=== PATIENT | female | born 1940 | race American Indian/Alaskan Native ===

== ENCOUNTER 2020-11-22 15:37 | Emergency (ER) | payer MEDICAID ==
[2020-11-22 16:02] VITALS: BP 148/81
[2020-11-22 16:52] LABS: BUN/Creatinine Ratio 17; Blood Urea Nitrogen 19 mg/dL (7-17); Calcium 9.6 mg/dL (8.4-10.2); Hemolysis Index 5
[2020-11-22 16:53] LABS: INR 1.05 (0.87-1.13)
[2020-11-22 16:54] LABS: Basophils # (Auto) 0.1 K/mm3 (0.0-0.1); Eosinophils # (Auto) 0.2 K/mm3 (0.0-0.4); Eosinophils % (Auto) 2.2 % (0.0-4.3); Hematocrit 43.9 % (30.3-42.9); Lymphocytes % (Auto) 26.7 % (13.4-35.0); Mean Corpuscular HGB Conc 34 % (30-34); Mean Corpuscular Volume 92 fl (79-97); Monocytes # (Auto) 0.8 K/mm3 (0.0-0.8); Monocytes % (Auto) 10.6 % (0.0-7.3); Partial Thromboplastin Time 41.1 Sec. (24.2-36.6); Platelet Count 186 K/mm3 (140-440); Red Blood Count 4.75 M/mm3 (3.65-5.03); Red Cell Distribution Width 13.1 % (13.2-15.2)
--- NOTE | 2020-11-22 17:31 | Cat Scan Report ---
NONENHANCED CT SCAN OF THE HEAD: INDICATION / CLINICAL INFORMATION: 80 years Female; neuro deficits <6hrs or sx present upon awakening. TECHNIQUE: Routine CT head without contrast. All CT scans at this location are performed using CT dos e reduction for ALARA by means of automated exposure control. COMPARISON: None. FINDINGS: BRAIN / INTRACRANIAL CONTENTS: No acute hemorrhage, mass effect, midline shift, hydrocephalus, or acu te, large territorial infarct. Subtle ischemic changes in the right corpus stratum; age indeterminate No significant white matter abnormality. CRANIOCERVICAL JUNCTION: No significant abnormality. ORBITS: No significant abnormality of visualized orbits. SINUSES / MASTOIDS: No significant abnormality of the visualized paranasal sinuses or mastoid air gaby ls. ADDITIONAL FINDINGS: None. IMPRESSION: No intracerebral hemorrhage or stroke mimics No acute territorial infarction; focal ischemic changes in the right corpus stratum; age indeterminat e Signer Name: Fermin Mark MD Signed: 11/22/2020 5:27 PM Workstation Name: [id number]
[2020-11-22] MEDS ORDERED: HYDROcodone/ACETAMINOPHEN 5-325 MG TAB PO ONE (18:44)
--- NOTE | 2020-11-22 18:55 | Emergency Department Report ---
HPI - General Chief Complaint: Neuro Symptoms/Deficit Time Seen by Provider: 11/22/20 18:31 - [facility] HPI: Room 7 The patient is an 80-year-old female present with a chief complaint of headache. Family states the patient has been complaining of intermittent migrating headache since yesterday. There is also noticed redness to the left eye. Has been no nausea vomiting, fever or preceding trauma. Patient denies paresthesia or weakness. Patient currently gets her headache a score of 8/10. ED Past Medical Hx - Past Medical History Hx Hypertension: Yes Hx CVA: Yes (TIA x2) Hx Diabetes: Yes - Surgical History Past Surgical History?: No - Family History Family history: no significant - Social History Smoking Status: Never Smoker Substance Use Type: None - Medications Home Medications: Home Medications Medication Instructions Recorded Confirmed Last Taken Type HYDROcodone/APAP 5-325 [[place] 1 each PO Q6HR PRN #10 tablet 11/22/20 Unknown Rx 5/325] ED Review of Systems ROS: Stated complaint: HEADACHE Other details as noted in HPI Constitutional: denies: fever Eyes: other (Subconjunctival hemorrhage OS) ENT: denies: ear pain Respiratory: no symptoms reported Cardiovascular: denies: chest pain Endocrine: no symptoms reported Gastrointestinal: denies: abdominal pain Genitourinary: denies: dysuria Musculoskeletal: denies: back pain Neurological: headache. denies: weakness, numbness, paresthesias Physical Exam - Physical Exam Vital Signs: Vital Signs 11/22/20 15:50 Temperature 98.7 F Pulse Rate 76 Respiratory 20 Rate Blood Pressure 148/81 O2 Sat by Pulse 96 Oximetry Physical Exam: GENERAL: The patient is well-developed well-nourished female lying on stretcher not appearing to be in acute distress. [] HEENT: Normocephalic. Atraumatic. Extraocular motions are intact. Patient has moist mucous membranes. Subconjunctival hemorrhage OS. No hyphema NECK: Supple. No meningitic signs are noted. There is no nuchal rigidity CHEST/LUNGS: Clear to auscultation. There is no respiratory distress noted. HEART/CARDIOVASCULAR: Regular. There is no tachycardia. There is no gallop rub or murmur. ABDOMEN: Abdomen is soft, nontender. Patient has normal bowel sounds. There is no abdominal distention. SKIN: There is no rash. There is no edema. There is no diaphoresis. NEURO: The patient is awake, alert, and oriented. The patient is cooperative. The patient has no focal neurologic deficits. The patient has normal speech and gait. Cranial nerves II through XII grossly intact, no drift. GCS 15. Negat linda Romberg MUSCULOSKELETAL: There is no evidence of acute injury. 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 Lymph # (Auto) 2.0 Dane # (Auto) 0.8 Eos # (Auto) 0.2 Baso # (Auto) 0.1 Seg Neutrophils % 59.8 Seg Neutrophils # 4.5 PT 14.2 INR 1.05 APTT 41.1 H Thrombin Time Sodium 144 Potassium 3.8 Chloride 102.3 Carbon Dioxide 31 H Anion Gap 15 BUN 19 H Creatinine 1.1 Estimated GFR 58 BUN/Creatinine Ratio 17 Glucose 90 Calcium 9.6 Troponin T < 0.010 11/22/20 16:14 WBC RBC Hgb Hct MCV MCH MCHC RDW Plt Count Lymph % (Auto) Dane % (Auto) Eos % (Auto) Baso % (Auto) Lymph # (Auto) Dane # (Auto) Eos # (Auto) Baso # (Auto) Seg Neutrophils % Seg Neutrophils # PT INR APTT Thrombin Time 16.0 Sodium Potassium Chloride Carbon Dioxide Anion Gap BUN Creatinine Estimated GFR BUN/Creatinine Ratio Glucose Calcium Troponin T - EKG Data -: EKG Interpreted by Ny EKG shows normal: sinus rhythm Rate: normal - EKG Data When compared to previous EKG there are: previous EKG unavailable Interpretation: nonspecific ST-T wave justin (T wave inversions in leads V5, V6) - Radiology Data Radiology results: report reviewed (CT head), image reviewed (CT head) [facility] [address] [place] [address] Cat Scan Report Signed Patient: BELEN FLANAGAN MR#: [id number] : 1940 Acct:[id number] Age/Sex: 80 / F ADM Date: 11/22/20 Loc: ED Attending Dr: Ordering Physician: BERNARD LAKHANI MD Date of Service: 11/22/20 Procedure(s): CT head/brain wo con Accession Number(s): [id number] cc: BERNARD LAKHANI MD NONENHANCED CT SCAN OF THE HEAD: INDICATION / CLINICAL INFORMATION: 80 years Female; neuro deficits <6hrs or sx present upon awakening. TECHNIQUE: Routine CT head without contrast. All CT scans at this location are performed using CT dose reduction for ALARA by means of automated exposure control. COMPARISON: None. FINDINGS: BRAIN / INTRACRANIAL CONTENTS: No acute hemorrhage, mass effect, midline shift, hydrocephalus, or acute, large territorial infarct. Subtle ischemic changes in the right corpus stratum; age indeterminate No significant white matter abnormality. CRANIOCERVICAL JUNCTION: No significant abnormality. ORBITS: No significant abnormality of visualized orbits. SINUSES / MASTOIDS: No significant abnormality of the visualized paranasal sinuses or mastoid air cells. ADDITIONAL FINDINGS: None. IMPRESSION: No intracerebral hemorrhage or stroke mimics No acute territorial infarction; focal ischemic changes in the right corpus stratum; age indeterminate Signer Name: Fermin Mark MD Signed: 11/22/2020 5:27 PM Workstation Name: [id number] Transcribed By: BS Dictated By: Fermin Miramontes MD Electronically Authenticated By: Fermin Miramontes MD Signed Date/Time: 11/22/201726 DD/ 13 TD/TT: Print Cancel - Differential Diagnosis Headache, ICH, intracranial mass, migraine Critical care attestation.: If time is entered above; I have spent that time in minutes in the direct care of this critically ill patient, excluding procedure time. ED Disposition Clinical Impression: Headache Disposition: DC-01 TO HOME OR SELFCARE Is pt being admited?: No Does the pt Need Aspirin: No Condition: Stable Instructions: General Headache Without Cause, [id number] Additional Instructions: Return to the emergency department should you develop worsening symptoms, inability to tolerate food or liquids, high fever or any other concerns Prescriptions: HYDROcodone/APAP 5-325 [[place] 5/325] 1 each PO Q6HR PRN #10 tablet PRN Reason: Pain Referrals: MARGOTH TAYLOR MD [Staff Physician] - 3-5 Days (Dr. Taylor is a neurologist. Please follow-up with him for further evaluation) Time of Disposition: 19:00
--- NOTE | 2020-11-26 09:41 | Electrocardiograph Report ---
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
== END 2020-11-22 19:49 | disposition home or self-care (01) ==
LOC: ED 15:37
DX: R51.9 Headache, unspecified (principal); I10 Essential (primary) hypertension; E11.9 Type 2 diabetes mellitus without complications; Z91.041 Radiographic dye allergy status; Z79.899 Other long term (current) drug therapy; Z86.73 Personal history of transient ischemic attack (TIA), and cerebral infarction without residual deficits; Z88.0 Allergy status to penicillin
CPT/HCPCS: 36415; 70450; 80048; 84484; 85025; 85610; 85670; 85730; 93005